=== PATIENT | male | born 1950 | race Caucasian/White ===

== ENCOUNTER 2017-07-14 19:52 | Inpatient (IN) | payer BC, OTHER ==
[~2017-07-14] VITALS: Ht 167.6 cm; Wt 99.3 kg
--- NOTE | ~2017-07-14 | EKG ---
[place] [address] [address] [facility] [place] [address] ELECTROCARDIOGRAM REPORT Name: JULIANA QUINONESD COLTEN Room #: REG 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 : 1950 Requested By: Kennedy Khan Order Number: [id number] MD: Osvaldo Kim Measurements Intervals [place] Rate: 84 P: 55 [place]: 193 QRS: 21 QRSD: 104 T: 82 QT: 382 QTc: 452 Interpretive Statements Sinus rhythm Probable left atrial enlargement Anteroseptal infarct, age indeterminate Baseline wander in lead(s) V2 Compared to ECG 06/07/2016 14:39:40 No significant changes Electronically Signed On 07-14-2017 21:09:36 CDT by Osvaldo Kim [email or web address] <ELECTRONICALLY SIGNED> By: Osvaldo Kim MD 07/14/17 [id number] 11 11 Osvaldo Kim MD /EPI
--- NOTE | ~2017-07-14 | HC ---
[facility] [place] [address] CONSULTATION Name: DOUGLAS QUINONES Room #: 245-P [facility]#: [id number] Admission: 07/14/17 Attend Phys: Ryan Han DO Discharge: 07/15/17 Date of : 52 Report #: [id number] THIS REPORT FOR: //name// CC: FAM unknown Ryan Han HISTORY OF PRESENT ILLNESS: The patient is a 67-year-old male with progressive weakness and marked microcytic anemia. HISTORY OF PRESENT ILLNESS: This patient reports that problems started after bypass surgery about a year and a half ago. Interestingly, he reports that his breathing did improve after his bypass surgery, but he has had progressive weakness, which has worsened even so in the past 3 months or so. He generally takes 1-2 regular aspirin daily. He takes this due to peripheral neuropathy related to diabetes. He had noted recently that 2 aspirin per day was causing burning in his stomach, so he cut back to 1. He has had some dark stools, but not jet black stools. He notes that he has had chronic constipation since childhood and reports that as a child, his parents dug out fecal impaction with a "spoon." He reports that he has pain with defecation that has been a lifelong problem and therefore he avoids defecation and sometimes would go a week or more without defecation. In addition, he reports occasionally he will see some red blood associated with pain with defecation. The patient was apparently evaluated at [facility] about 3 months ago; unfortunately, he does not have many details. It sounds as if he was scheduled for both an EGD and colon. He is not sure why. I presume was for anemia. Regardless, the upper endoscopy was completed and he was told he had a bacteria in his stomach and given antibiotics. Colonoscopy apparently was attempted, but aborted due to poor prep. He has returned for a colonoscopy, but never did so. He reports feeling more short of breath recently and increasing shortness of breath. It finally came to culmination yesterday when he was trying to go up the stairs and he could not make it up the stairs and had to crawl up the stairs and then had to lie down on the landing at the top of the stairs. He said he did not have any loss of consciousness. At that point, he decided that things were going too far and he needed to come to the hospital and seek further evaluation. There has been no nausea, vomiting, hematemesis. PAST MEDICAL HISTORY: Notable for coronary artery disease with myocardial infarction in the past and 5-way bypass about 18 months ago. He has increasing weakness. He does have diabetes, which is managed with Victoza. He also has peripheral neuropathy. He has been treated for anxiety/depression with a Xanax which he takes from time to time. He has had elevated lipids and does use a statin. PAST SURGICAL HISTORY: Bypass surgery and surgery for deviated septum. [address] [address] CONSULTATION Name: KAMILAHSUSANNAHDOUGLASOdilon ABEL Room #: 245-P [facility]#: [id number] Admission: 07/14/17 Attend Phys: Ryan Han, DO Discharge: 07/15/17 Date of : 52 Report #: [id number] ALLERGIES: No known drug allergies. USUAL HOME MEDICATIONS: Victoza, aspirin usually 1-2 daily, Xanax as needed, a statin he does not recall the name, recent antibiotics presumably for H. pylori, Lasix as needed for peripheral edema. FAMILY HISTORY: No family history of colon cancer, father had ulcer disease. SOCIAL HISTORY: He is . 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 He smoked briefly while in the many years ago. He does not use alcohol in success. REVIEW OF SYSTEMS: GENERAL: Progressive weakness, no fever or chills. CENTRAL NERVOUS SYSTEM: No focal weakness, numbness, loss of consciousness, seizures or strokes other than peripheral neuropathy presumably related to diabetes. ENT: Some difficulty with glare in sunlight, not aware of cataracts, no known retinopathy. No change in hearing or sores in the mouth. PULMONARY: Recent worsening shortness of breath, no pneumonia or tuberculosis. Smoked briefly many years ago. CARDIOVASCULAR: Bypass surgery. He has had chest pain in the past, but not recently. GASTROINTESTINAL: No nausea, vomiting, hematemesis, some dyspepsia with use of aspirin, chronic constipation. The patient reports he thinks he has fissuring, although he has never been evaluated and he occasionally sees bright red blood. Recent failed colonoscopy due to prep. GENITOURINARY: Some difficulty with starting stream and urination. MUSCULOSKELETAL: No arthralgias or myalgias. SKIN: Wart removed from his hand. No rashes. HEMATOLOGIC: No bleeding, bruising or malignancies. PSYCHIATRIC: He has had Xanax for depression/anxiety. PHYSICAL EXAMINATION: GENERAL: The patient is a well-developed, well-nourished, pleasant male who is awake, alert and oriented, no acute distress. VITAL SIGNS: Blood pressure 107/59. Pulse is 77, he has been afebrile. HEENT: He is anicteric. Pupils equal and round. Oropharynx clear. NECK: Supple. CHEST: Clear. HEART: Regular rate and rhythm, normal S1 and normal S2. ABDOMEN: Normal bowel sounds, soft, nontender, without hepatosplenomegaly or masses. RECTAL: Not done at this time. EXTREMITIES: Without cyanosis, clubbing, edema. [facility] [address] [place] [address] CONSULTATION Name: DOUGLAS QUINONES Room #: 245-P [facility] M[facility]#: [id number] Admission: 07/14/17 Attend Phys: Ryan Han DO Discharge: 07/15/17 Date of : 52 Report #: [id number] NEUROLOGIC: Alert and oriented to person, place and time. Moves all 4 extremities well. LABORATORY STUDIES: White count of 8500. Hemoglobin was 5.9 upon admission, it is up to 7.2. MCV is 63.6; there is a CBC in the computer and on 06/07/2016, it was 90.5; platelet count 196,000. INR of 1.1. Electrolytes are normal. BUN of 18. Creatinine was initially 1.5, with transfusion and hydration, has dropped to 1.2. Blood sugar 162. Lactic acid 1.8, calcium 8.4. Iron low at 34, TIBC is borderline high at 446, saturation low at 8%. Liver function studies are normal. Troponin is less than 0.04. Albumin is 3.6. IMAGING: Chest x-ray, generalized cardiomegaly. ASSESSMENT: 1. Microcytic anemia with heme-negative stools in the Emergency Room. 2. Coronary artery disease with previous bypass surgery. 3. History of congestive heart failure. 4. Diabetes with peripheral neuropathy, on Victoza. 5. Chronic constipation. 6. Intermittent rectal bleeding, questionably anal fissuring. 7. Use of aspirin. 8. Possible recent Helicobacter pylori. RECOMMENDATIONS: 1. Transfuse as needed. 2. Monitor hemoglobin. 3. Colonoscopy and possibly upper endoscopy on the first day of the week. 4. Laxatives. 5. Suppositories for fissuring. <ELECTRONICALLY SIGNED> By: Dylan Dee MD 07/15/17 1305 [id number] [id number] Dylan Dee MD /nt
[~2017-07-14 19:52] MED LIST: CITRATE OF MAG296 ML PO; COLACE100 MG PO; LEVAQUIN 500 M500 M2 PO
[2017-07-14 20:18] LABS: BASOPHILS 0.9 % (0.0-2.0); WBC 8.5 thou/uL (4.0-11.0)
[2017-07-14 20:19] LABS: ABSOLUTE NEUTROPHILS 5.7 thou/uL (1.4-8.2); EOSINOPHILS 3.1 % (0.0-3.0); HEMATOCRIT 20.6 % (42.0-52.0); LYMPHOCYTES 19.2 % (24.0-44.0); MCH 18.4 pg (26.0-34.0); MCHC 28.9 g/dL (28.0-37.0); MCV 63.6 fL (80.0-100.0); MONOCYTES 9.3 % (1.0-8.0); PLATELET COUNT 196 thou/uL (150-400); POLYS 67.5 % (36.0-66.0); RBC 3.24 mil/uL (4.50-6.00); RDW 17.8 % (10.5-14.5)
[2017-07-14 20:20] LABS: MANUAL DIFF NO
[2017-07-14 20:22] LABS: HEMOGLOBIN 5.9 gm/dL (14.0-18.0)
[2017-07-14 20:25] LABS: ANION GAP 10 mmol/L (7-16); BUN 23 mg/dL (7-18); CALCIUM 8.8 mg/dL (8.5-10.1); CHLORIDE 103 mmol/L (98-107); CO2 23 mmol/L (21-32); CREATININE 1.5 mg/dL (0.7-1.3); GLUCOSE 242 mg/dL (74-106); POTASSIUM 4.3 mmol/L (3.5-5.1); SODIUM 136 mmol/L (136-145)
[2017-07-14 20:32] LABS: APTT 23.8 Seconds (24.5-32.8); INR 1.1; PROTIME 11.4 Seconds (9.3-11.4)
[2017-07-14 20:33] LABS: ALBUMIN 3.6 g/dL (3.4-5.0); ALKALINE PHOSPHATASE 90 U/L (46-116); DIRECT BILIRUBIN 0.1 mg/dL (<0.1-0.3); SGOT 11 U/L (15-37); SGPT 15 U/L (30-65); TOTAL BILIRUBIN 0.3 mg/dL (<0.1-1.0); TROPONIN-I < 0.04 ng/mL (<0.04-0.07)
[2017-07-14 20:38] LABS: HYPOCHROMASIA 2+; MICROCYTES 2+; POLYCHROMASIA SLIGHT
[2017-07-14 20:39] LABS: ANISOCYTOSIS 3+
[2017-07-14 22:00] VITALS: BP 108/51; BP 114/65
[2017-07-14 23:51] VITALS: BP 97/46
[2017-07-15] VITALS (40 sets, daily range): BP systolic 91–130; BP diastolic 41–78
[2017-07-15] MEDS ORDERED: VICTOZA0.6 MG/0.1 SUBQ (01:11)
[2017-07-15 01:21] LABS: HEMATOCRIT 20.9 % (42.0-52.0)
[2017-07-15 01:28] LABS: HEMOGLOBIN 6.2 gm/dL (14.0-18.0)
[2017-07-15 06:54] LABS: HEMATOCRIT 23.6 % (42.0-52.0); HEMOGLOBIN 7.2 gm/dL (14.0-18.0)
[2017-07-15 07:03] LABS: CALCIUM 8.4 mg/dL (8.5-10.1); CREATININE 1.2 mg/dL (0.7-1.3); POTASSIUM 3.9 mmol/L (3.5-5.1)
[2017-07-15 07:13] LABS: % SATURATION 8 % (20-39); IRON 34 ug/dL (65-175); TIBC 446 ug/dL (250-450); UIBC 412 ug/dL
[2017-07-15] MEDS ORDERED: COLACE100 MG PO (08:39)
[2017-07-15] MEDS ORDERED: MIRALAX17 GM PO (08:40)
[2017-07-15] MEDS ORDERED: IRON325 PO (08:40)
[2017-07-15 12:06] LABS: HEMATOCRIT 27.6 % (42.0-52.0); HEMOGLOBIN 8.5 gm/dL (14.0-18.0)
== END 2017-07-15 12:22 | disposition home or self-care (01) | DRG 812 ==
LOC: ER 19:52 → EROBS 22:53 → ICU 23:36
PROVIDERS: Emergency Medicine; Nurse Practitioner Acute Care
PROC: 30233N1 Transfusion of Nonautologous Red Blood Cells into Peripheral Vein, Percutaneous Approach (ICD-10-PCS; principal; 2017-07-14)
DX: D50.9 Iron deficiency anemia, unspecified (principal); F32.9 Major depressive disorder, single episode, unspecified; Z66 Do not resuscitate; I25.10 Atherosclerotic heart disease of native coronary artery without angina pectoris; E11.40 Type 2 diabetes mellitus with diabetic neuropathy, unspecified; F41.9 Anxiety disorder, unspecified; K59.09 Other constipation; I50.9 Heart failure, unspecified; E78.5 Hyperlipidemia, unspecified; Z95.1 Presence of aortocoronary bypass graft; Z87.891 Personal history of nicotine dependence; I25.2 Old myocardial infarction; Z82.49 Family history of ischemic heart disease and other diseases of the circulatory system; Z80.8 Family history of malignant neoplasm of other organs or systems
CPT/HCPCS: 10078

== ENCOUNTER → 2020-05-15 | Outpatient (CLI) | payer BC, OTHER ==
[~2020-05-15] MED LIST changes: +IRON325 PO; +MIRALAX17 GM PO; +VICTOZA0.6 MG/0.1 SUBQ
== END ==
LOC: SJCVC 11:16
PROVIDERS: ATTEND Internal Medicine Cardiovascular Disease
DX: I45.10 Unspecified right bundle-branch block (principal); R94.31 Abnormal electrocardiogram [ECG] [EKG]; I25.810 Atherosclerosis of coronary artery bypass graft(s) without angina pectoris; I42.9 Cardiomyopathy, unspecified; I10 Essential (primary) hypertension; E78.00 Pure hypercholesterolemia, unspecified; E11.9 Type 2 diabetes mellitus without complications; E78.5 Hyperlipidemia, unspecified; Z79.82 Long term (current) use of aspirin; Z79.899 Other long term (current) drug therapy; Z95.1 Presence of aortocoronary bypass graft; Z87.891 Personal history of nicotine dependence

== ENCOUNTER → 2021-07-19 | Outpatient (CLI) | payer BC, OTHER | LOC: SJCVC 10:14 | PROVIDERS: ATTEND Internal Medicine Cardiovascular Disease | DX: I45.10 Unspecified right bundle-branch block (principal); R94.31 Abnormal electrocardiogram [ECG] [EKG]; I44.0 Atrioventricular block, first degree; I10 Essential (primary) hypertension; I42.9 Cardiomyopathy, unspecified; I25.10 Atherosclerotic heart disease of native coronary artery without angina pectoris; E11.9 Type 2 diabetes mellitus without complications; F32.9 Major depressive disorder, single episode, unspecified; E78.00 Pure hypercholesterolemia, unspecified; E78.5 Hyperlipidemia, unspecified; Z88.8 Allergy status to other drugs, medicaments and biological substances; Z79.82 Long term (current) use of aspirin; Z79.899 Other long term (current) drug therapy; Z95.1 Presence of aortocoronary bypass graft; Z87.891 Personal history of nicotine dependence; Z72.89 Other problems related to lifestyle ==

== ENCOUNTER → 2021-08-09 | Outpatient (CLI) | payer BC, OTHER | LOC: SJCVC 09:54 | PROVIDERS: ATTEND Internal Medicine Cardiovascular Disease | DX: R94.31 Abnormal electrocardiogram [ECG] [EKG] (principal); I49.3 Ventricular premature depolarization; I51.7 Cardiomegaly; I25.10 Atherosclerotic heart disease of native coronary artery without angina pectoris; I42.9 Cardiomyopathy, unspecified; F32.9 Major depressive disorder, single episode, unspecified; E11.9 Type 2 diabetes mellitus without complications; R60.9 Edema, unspecified; R29.898 Other symptoms and signs involving the musculoskeletal system; F90.1 Attention-deficit hyperactivity disorder, predominantly hyperactive type; E78.5 Hyperlipidemia, unspecified; Z95.1 Presence of aortocoronary bypass graft; Z88.8 Allergy status to other drugs, medicaments and biological substances; Z79.82 Long term (current) use of aspirin; Z79.84 Long term (current) use of oral hypoglycemic drugs; Z79.899 Other long term (current) drug therapy; Z72.89 Other problems related to lifestyle; Z87.891 Personal history of nicotine dependence ==